=== PATIENT | male | born 1945 | race Caucasian/White ===

== ENCOUNTER → 2023-11-28 07:24 | Outpatient (REF) | payer OTHER, SELFPAY | LOC: HWRAD 07:24 | PROVIDERS: ATTENDING PHYSICIAN Physician Assistant | DX: R22.2 Localized swelling, mass and lump, trunk (principal) | CPT/HCPCS: 71046; 76604 ==

== ENCOUNTER 2023-12-04 20:38 | Emergency (ER) | payer OTHER, SELFPAY ==
[2023-12-04 20:40] VITALS: BP 168/70
[2023-12-04 21:09] LABS: % Basophils 0.4 % (0-2); % Eosinophils 2.2 % (0-6); % Immature Granulocytes 0.2 % (0-0.5); % Lymphocytes 21.7 % (20.5-51.1); % Monocytes 11.7 % (1.7-9.3); % Neutrophils 63.8 % (42.2-75.2); Absolute Eosinophils 0.2 10^3/uL (0-0.7); Absolute Lymphocytes 2.2 10^3/uL (1.2-3.4); Absolute Monocytes 1.2 10^3/uL (0.1-0.6); Absolute Neutrophils 6.5 10^3/uL (1.4-6.5); Hematocrit 35.9 % (39.0-52.0); Hemoglobin 12.7 g/dL (13.0-18.0); Mean Corp Hgb Conc. 35.4 g/dL (33.0-37.0); Mean Corpuscular Hgb 31.3 pg (27.0-31.0); Mean Corpuscular Volume 88.4 fL (80.0-94.0); Mean Platelet Volume 8.4 fL (7.4-10.4); Nucleated Red Blood Cells % 0 % (-); Platelet Count 222 10^3/uL (130-400); Red Blood Cell Count 4.06 10^6/uL (4.70-6.10); Red Cell Dist. Width 13.3 % (11.5-14.5); White Blood Cell Count 10.1 10^3/uL (4.8-10.8)
[2023-12-04 21:33] LABS: Troponin I < 0.012 ng/ml
[2023-12-04 21:37] LABS: ALT (SGPT) 16 U/L (0-50); AST (SGOT) 24 U/L (17-59); Albumin 4.1 g/dl (3.5-5.0); Alkaline Phosphatase 71 U/L (38-126); Blood Urea Nitrogen 19 mg/dl (9-20); Calcium 9.2 mg/dl (8.4-10.2); Carbon Dioxide 27 mmol/L (22-30); Chloride 99 mmol/L (98-107); Glucose 120 mg/dl (70-99); Potassium 4.7 mmol/L (3.5-5.1); Sodium 133 mmol/L (135-145); Total Bilirubin 1.3 mg/dl (0.2-1.3); Total Protein 6.8 g/dl (6.3-8.2); eGFR > 60.00
[2023-12-04 22:40] VITALS: BP 140/74
[2023-12-04 23:00] VITALS: BP 120/68
[2023-12-05] VITALS: BP 153/79
--- NOTE | 2023-12-05 00:21 | ED.GENMED ---
History of Present Illness
General
Chief Complaint: Chest Pain
Source: patient and previous hospital records (Previous ED visit October 2022 for acute postop urinary retention.)
Exam Limitations: none
Time Seen by Provider: 12/04/23 23:28
Nursing documentation reviewed up to this point in time: agreed with
History of Present Illness
History of Present Illness:
This is a 78-year-old gentleman who has history of hypertension, hyperlipidemia, BPH who complains of left lateral pleuritic type chest pain initially began around 2 PM today. He took 2 ibuprofen and pain resolved. He felt well until tonight
around 8 PM while sitting in a chair drinking coffee he developed sudden onset of severe left lateral chest pain that is much worse with deep breath causing him to grunt and developed some difficulty breathing. He took 400 mg of ibuprofen around 8
PM but thus far no improvement in pain. Prior to today no history of similar episodes of pain. He denies fall nor injury but was doing a fair amount of lifting and bending yesterday while clearing out his shed. He has not had a cough, no fever no
chills, no palpitations, no dizziness nor lightheadedness. He denies back pain or flank pain, no abdominal pain, no nausea or vomiting.
No recent travel, he denies leg pain or swelling.
Past History
Past History
ED Past Medical History: Cancer (Laryngeal carcinoma 2004), HTN and Hypercholesterolemia
ED Past Surgical History: Appendectomy and Other (Lymph node dissection in the neck 2004; inguinal hernia October 2022)
Social History
Tobacco: Former smoker
Alcohol: Daily
Drug: None
Personal:
Living: with family
Employment: Retired
Family History
Family History: Other (Noncontributory)
Phy Exam
Physical Exam
Physical Exam:
GENERAL: 78-year-old gentleman appears his stated age, awake and alert, pleasant, appears mildly uncomfortable, resistant to move I resisted to take deep breaths. He is able to speak in full sentences. Sister is accompanying
EYE: anicteric
NECK: Supple, nontender, no meningismus, no significant adenopathy.
ENT: oral mucosa is moist. No rhinorrhea.
CARDIAC: Regular rate and rhythm. no murmur.
LUNGS: Exquisite tenderness left lateral chest wall. Palpation seems to exactly reproduce patient's pain complaint. There is no crepitus nor palpable bony abnormality. Mildly decreased breath sounds left base with markedly limited inspiration
related to pain. There is no respiratory distress.
ABDOMEN: Soft, nondistended, without focal tenderness, no r/g, no cvat. normoactive BS.
NEUROLOGICAL: Alert and oriented x3, no focal neuro deficits.
SKIN: Warm and dry, normal color, skin intact. No rash.
MUSCULOSKELETAL: No C/C/E. peripheral pulses are full and equal b/l. No palpable tenderness.
PSYCH: Normal and appropriate interaction.
Scores
Heart Score for Chest Pain Patients
STEMI patient?: No
History: Slightly or Non-Suspicious
ECG: Normal
Age: >/= 65 years
Risk Factors: 1 or 2 Risk Factors
Troponin: </= Normal Limit
Heart Score for Chest Pain Patients: 3
Heart Score Risk: 2.5% MACE over next 6 weeks
Course
Orders/Labs/Results
Orders:
Orders
12/04/23 20:40
Electrocardiogram (*1) Urgent
Reason for Study: Chest Pain
EKG- Treatment ONCE
12/04/23 21:00
CMP [Comprehensive Metabolic Panel] Urgent
Complete Blood Count/With Diff Urgent
Troponin I Urgent
12/04/23 23:51
Troponin I Urgent
12/05/23 00:04
Ketorolac [Toradol] 30 mg IV NOW STA
12/05/23 00:29
D-Dimer Urgent
12/05/23 01:16
CT Chest Pe Study Urgent
Comment:
Reason For Exam: severe pleuritic L CP, elevated ddimer
Abnormal Lab Results
12/04/23 12/05/23
21:00 00:29
RBC 4.06 L 10^6/uL
(4.70-6.10)
Hgb 12.7 L g/dL
(13.0-18.0)
Hct 35.9 L %
(39.0-52.0)
MCH 31.3 H pg
(27.0-31.0)
Absolute Monos (auto) 1.2 H 10^3/uL
(0.1-0.6)
Monocytes % 11.7 H %
(1.7-9.3)
D-Dimer 1.71 H ug/mlFEU
(0.00-0.50)
Sodium 133 L mmol/L
(135-145)
Glucose 120 H mg/dl
(70-99)
12/04/23 21:00
12/04/23 21:00
Vital Signs
Initial and Last Documented VS:
Initial Vital Signs
Temp Pulse Resp BP Pulse Ox
97.8 F 74 28 168/70 97
12/04/23 20:40 12/04/23 20:40 12/04/23 20:40 12/04/23 20:40 12/04/23 20:40
Last Documented Vital Signs
Temp Pulse Resp BP Pulse Ox
97.8 F 63 16 153/79 95
12/04/23 20:40 12/05/23 02:45 12/05/23 02:45 12/05/23 00:00 12/05/23 02:45
MDM/Problems Addressed
Differential Diagnosis Includes:
Acute severe pleuritic left lateral chest pain may be musculoskeletal strain in nature but must consider occult rib fracture, pneumonia, pleurisy, pleural effusion, PE.
ACS is less likely.
EKG shows normal sinus rhythm, unremarkable without ST-T wave abnormalities, similar and unchanged from previous.
Labs thus far show minimal anemia otherwise unremarkable. Troponin is negative. Repeat troponin is pending.
Will check D-dimer and medicate for pain with an IV dose of Toradol.
Will consider imaging depending on results.
*Radiology
Radiology exam reviewed: radiology read reviewed
*Pulse Oximetry
Patient hypoxic: no
*EKG
Interpreted by ED Provider?: Yes
Interpretation: normal
Comparison EKG: no changes (Unchanged from previous 2018)
Rate: normal
Rhythm: sinus
[place]: normal axis
Interval: normal interval
QRS Pattern: normal QRS
Ischemia: no ischemia
*Rotational Moulding Operator Interpretation
Rate: normal
Interpretation: normal
Rhythm: sinus
*Critical Care Note
Total Time (30-74mins, 75-104mins- exclusive of procedures): Not Applicable
Update Note
Update Note:
12/05/2023 0251 AM
Patient is much more comfortable after IV dose of Toradol. Resting comfortably. He continues with mild to moderate left lateral chest pain with deep inspiration but no dyspnea and able to move about with ease.
He continues to deny cough, remains afebrile.
Repeat troponin remains negative.
D-dimer mildly elevated thus CT of the chest/PE study performed which shows no evidence of PE. Clear lung vasquez.
History and exam most consistent with musculoskeletal chest wall pain/intercostal muscle strain. There may be an element of pleurisy. Each is treated with NSAID and will prescribe diclofenac to be taken twice daily as needed for pain.
Recommend supportive measures, local moist heat, avoidance of lifting at least over the next week.
Prompt follow-up with PCP.
ED Attending Note
-
Portions of this chart may have been created with voice recognition software.� Occasional wrong word or��sound alike� substitutions may have occurred due to the inherent limitations of voice recognition software.
Discharge Plan
Departure
Patient Disposition: Home (Routine Discharge)
Date of Disposition: 12/05/23
Time of Disposition: 02:52
Patient with high blood pressure during this ER visit?: No
Condition: Good
Discharge Problem:
Intercostal muscle strain
Instructions: Muscle Strain (DC), Pleuritic Chest Pain ED
Prescriptions:
New
diclofenac sodium 75 mg tablet,delayed release (DR/EC)
75 mg PO BID PRN (Reason: pain) Qty: 30 0RF
No Action
metoprolol succinate 25 MG tablet extended release 24 hr
25 mg PO DAILY Qty: 30 0RF
simvastatin 20 mg Tablet
20 mg PO HS
ipratropium bromide 21 mcg (0.03 %) [place],Non-Aerosol
1 spray INTRANASAL DAILY
melatonin 5 mg Tablet
5 mg PO HS
Osteo Bi-Flex Triple Strength 750 mg-644 mg- 30 mg-1 mg Tablet
1 tab PO DAILY
oxycodone 5 mg tablet
5 - 10 mg PO Q4HPRN PRN (Reason: moderate to severe pain) Qty: 10 0RF
tamsulosin [Flomax] 0.4 mg capsule
0.4 mg PO HS Qty: 10 0RF
Referrals:
Trevin Bell MD [Family Provider] - Call in 1-3 days for appt
Interventions
Interventions:
*Risk Screen - Suicide Last Done: 12/04/23 20:40
*General Assessment Last Done: 12/05/23 00:36
*Neglect/Abuse Screening Last Done: 12/04/23 20:40
ED- Fall Risk Assessment Last Done: 12/05/23 00:36
*ED COVID-19 Vaccine History Last Done: 12/05/23 00:36
ED- Cardiac Assessment Last Done: 12/04/23 22:00
Discharge Date and Time
Print Language: CROATIAN
[2023-12-05 00:22] LABS: Troponin I < 0.012 ng/ml
[2023-12-05] MEDS: TORADOL 30 MG IV (00:30)
[2023-12-05 00:50] LABS: D-Dimer 1.71 ug/mlFEU (0.00-0.50)
[2023-12-05 03:00] VITALS: BP 146/81
== END 2023-12-05 03:02 | disposition home or self-care (01) ==
LOC: EMR 20:38
PROVIDERS: Emergency Medicine; EMERGENCY PHYSICIAN Emergency Medicine; FAMILY PHYSICIAN Family Medicine
DX: R07.89 Other chest pain (principal); I10 Essential (primary) hypertension; E78.00 Pure hypercholesterolemia, unspecified; N40.1 Benign prostatic hyperplasia with lower urinary tract symptoms; S29.011A Strain of muscle and tendon of front wall of thorax, initial encounter; Z85.21 Personal history of malignant neoplasm of larynx; Z87.891 Personal history of nicotine dependence; Z90.49 Acquired absence of other specified parts of digestive tract
CPT/HCPCS: 99284; 96374; 71275; 80053; 84484; 85025; 85379; 93005; Q9967

== ENCOUNTER → 2024-11-21 10:32 | Outpatient (REF) | payer OTHER, SELFPAY | LOC: HWRAD 10:32 | PROVIDERS: ATTENDING PHYSICIAN Family Medicine | DX: M95.3 Acquired deformity of neck (principal) | CPT/HCPCS: 72050 ==